=== PATIENT | male | born 1965 | race Caucasian/White ===

== ENCOUNTER 2016-09-14 21:53 | Emergency (ER) | payer OTHER ==
--- NOTE | 2016-09-14 22:14 | Emergency Department Record ---
History of Present Illness - General Chief Complaint: Laceration(s) Stated Complaint: LAC ON L THUMB Time Seen by Provider: 09/14/16 22:04 Source: Patient Mode of Arrival: Ambulatory Limitations: No limitations - History of Present Illness Initial Commments: The patient cut his L thumb with a knife a half hour ago. He denies any numbness or weakness. His Td is UTD. Onset/Timin -: Minutes(s) Treatments Prior to Arrival: Bandage - [place] Coma Scale Eye Response: (4) Open spontaneously Motor Response: (6) Obeys commands Verbal Response: (5) Oriented [place] Total: 15 - Related Data Hx Tetanus Toxoid Vaccination: Yes Year of Tetanus Vaccination: 2010 Patient Tetanus UTD (within 5 yrs): No (pt says at least 5) Home Medications Medication Instructions Recorded Confirmed Last Taken Lisinopril 40 mg PO DAILY 03/22/14 09/14/16 09/14/16 Allopurinol [Zyloprim] 300 mg PO DAILY 01/01/15 09/14/16 09/14/16 Diclofenac Sodium [Voltaren-Xr] 100 mg PO DAILY 01/01/15 09/14/16 09/14/16 Previous Rx's Medication Instructions Recorded Cephalexin [Keflex] 500 mg PO QID #20 cap 09/14/16 Allergies Allergy/AdvReac Type Severity Reaction Status Date / Time No Known Drug Allergies Allergy Verified 01/01/15 18:33 Travel Screening - Travel/Exposure Within Last 30 Days Have you traveled within the last 30 days?: No - Travel/Exposure Within Last Year Have you traveled outside the [place] in the last year?: No - Additonal Travel Details Have you been exposed to anyone with a communicable illness?: No Past Medical History - SOCIAL HISTORY Smoking Status: Never smoker Alcohol Use: Occassional Drug Use: None - RESPIRATORY Hx Respiratory Disorders: Yes Hx Sleep Apnea: Yes - CARDIOVASCULAR Hx Cardiac Cath: Yes (unkown details) Hx Heart Attack: Yes Hx Hypertension: Yes - NEURO Hx Neuro Disorders: No - GI Hx GI Disorders: No - Hx Genitourinary Disorders: No - ENDOCRINE Hx Endocrine Disorders: No Hx Diabetes: No Hx Thyroid Disease: No - MUSCULOSKELETAL Hx Musculoskeletal Disorders: Yes Hx Arthritis: Yes - PSYCH Hx Psych Problems: No - HEMATOLOGY/ONCOLOGY Hx Hematology/Oncology Disorders: No Family Medical History Any Significant Family History?: No Hx Heart Disease: Father, Mother *Heart Comment: father with [place] at 50 Hx HTN: Father, Mother *Stroke Comment: father -testicular CA Physical Exam - General General Appearance: Alert, Oriented x3, Cooperative, No acute distress - Extremities Extremities exam: negative: Normal inspection (There is a 1.2 cm lac to the distal L thumb over the anterior surface radial side. The thumb is NVI distally. ) Image of Finger Tip: 1 - 1.2 cm lac. Course Vital Signs 09/14/16 09/14/16 21:54 21:58 Temperature 98.3 F 98.5 F Pulse Rate 85 Pulse Rate [ 92 H Pulse Ox Probe] Respiratory 16 18 Rate Blood Pressure 139/85 Blood Pressure 139/85 [Left Arm] Pulse Ox 98 96 - Reevaluation(s) Reevaluation #1: Procedure note: The L thumb was anesth. with 1.5 CC lido %. The wound was prepped with betadine and cleansed with sterile saline. The wound was closed with 4 4.0 nylon sutures. There were no complications. 09/14/16 22:27 Disposition Disposition: Discharge Clinical Impression: Laceration of Thumb Qualifiers: Encounter type: initial encounter Laterality: left Qualified Code(s): S61.012A - Laceration without foreign body of left thumb without damage to nail, initial encounter Disposition: Home, Self-Care Condition: (1) Good Instructions: Laceration (ED) Additional Instructions: Keep dry for 2 days then wash daily but no soaking. Watch for signs of infection. Take the Keflex as directed. Have the suture removed in 10 days. Prescriptions: Cephalexin [Keflex] 500 mg PO QID #20 cap Forms: Patient Portal Access Time of Disposition: 22:30
== END 2016-09-14 22:39 | disposition home or self-care (01) ==
LOC: ER 21:53
DX: S61.012A Laceration without foreign body of left thumb without damage to nail, initial encounter (principal); W26.0XXA Contact with knife, initial encounter
CPT/HCPCS: 12001; 99283

== ENCOUNTER 2017-05-10 21:21 | Observation (INO) | payer BC, OTHER ==
[2017-05-10] MEDS ORDERED: METHYLPREDNISOLONE PF 125MG/VIAL IVP ONE (21:32)
[2017-05-10] MEDS ORDERED: IPRATROPIUM/ALBUTEROL (0.5MG/3MG) NEB INH ONE (21:32)
--- NOTE | 2017-05-10 21:38 | Emergency Department Record ---
History of Present Illness - General Chief Complaint: Shortness of breath Stated Complaint: ROBERT Time Seen by Provider: 05/10/17 21:32 Source: Patient, EMS Mode of Arrival: EMS Limitations: No limitations - History of Present Illness Initial Comments: 52 yo male presents to ED for evaluation of progressively worsening ROBERT for 1 week, worse tonight. Patient denies previous history of lung problems., but does report fever, wheezing, and non-productive cough symptoms. Patient reports a history of HTN and previous SD. MD Complaint: Shortness of breath Onset/Timin -: Week(s) Severity: Moderate Consistency: Constant Improves With: Bronchodilators Worsens With: Coughing Context: Recent illness, Recent URI Associated Symptoms: Denies other symptoms Treatments Prior to Arrival: Bronchodilator - Related Data Home Oxygen Therapy: No Home Medications Medication Instructions Recorded Confirmed Last Taken Prednisone [Prednisone 10Mg] 10 mg PO ASDIR PRN 05/10/17 05/10/17 Unknown Allergies Allergy/AdvReac Type Severity Reaction Status Date / Time No Known Drug Allergies Allergy Verified 01/01/15 18:33 Review of Systems Constitutional: Reports: Chills, Fever. Denies: Malaise, Night sweats Eyes: Denies: Eye discharge, Eye pain ENT: Denies: Congestion, Ear pain, Epistaxis Respiratory: Reports: Cough, Dyspnea Cardiovascular: Reports: Dyspnea on exertion. Denies: Chest pain, Edema Endocrine: Denies: Fatigue, Heat or cold intolerance Gastrointestinal: Denies: Abdominal pain, Nausea, Vomiting Genitourinary: Denies: Incontinence, Retention Musculoskeletal: Denies: Arthralgia, Back pain, Gout, Joint swelling Skin: Denies: Bruising, Change in color Neurological: Denies: Abnormal gait, Confusion, Headache, Seizure Psychiatric: Denies: Anxiety Hematological/Lymphatic: Denies: Anemia, Blood Clots Past Medical History - SOCIAL HISTORY Smoking Status: Never smoker Drug Use: None - RESPIRATORY Hx Respiratory Disorders: Yes Hx Sleep Apnea: Yes - CARDIOVASCULAR Hx Cardiac Cath: Yes (unkown details) Hx Heart Attack: Yes Hx Hypertension: Yes - NEURO Hx Neuro Disorders: No - GI Hx GI Disorders: No - Hx Genitourinary Disorders: No - ENDOCRINE Hx Endocrine Disorders: No Hx Diabetes: No Hx Thyroid Disease: No - MUSCULOSKELETAL Hx Musculoskeletal Disorders: Yes Hx Arthritis: Yes - PSYCH Hx Psych Problems: No - HEMATOLOGY/ONCOLOGY Hx Hematology/Oncology Disorders: No Family Medical History Hx Heart Disease: Father, Mother *Heart Comment: father with [place] at 50 Hx HTN: Father, Mother *Stroke Comment: father -testicular CA Physical Exam - General General Appearance: Alert, Oriented x3, Cooperative, Moderate distress Limitations: No limitations - Head Head exam: Atraumatic, Normocephalic, Normal inspection Head exam detail: negative: Abrasion, Contusion, Solo's sign, General tenderness, Hematoma, Laceration - Eye Eye exam: Normal appearance. negative: Conjunctival injection, Periorbital swelling, Periorbital tenderness, Scleral icterus - ENT Ear exam: negative: Auricular hematoma, Auricular trauma Nasal Exam: negative: Active bleeding, Discharge, Dried blood, Foreign body Mouth exam: negative: Drooling, Laceration, Muffled voice, Tongue elevation - Neck Neck exam: Normal inspection. negative: Meningismus, Tenderness - Respiratory Respiratory exam: Decreased breath sounds, Respiratory distress. negative: Rales, Rhonchi, Stridor - Cardiovascular Cardiovascular Exam: Normal rhythm, Normal heart sounds, Tachycardia - GI/Abdominal GI/Abdominal exam: Soft. negative: Rebound, Rigid, Tenderness - Rectal Rectal exam: Deferred - exam: Deferred - Extremities Extremities exam: Normal inspection. negative: Calf tenderness, Pedal edema, Tenderness - Back Back exam: Denies: CVA tenderness (R), CVA tenderness (L) - Neurological Neurological exam: Alert, Normal gait, Oriented X3 - Psychiatric Psychiatric exam: Normal affect, Normal mood - Skin Skin exam: Normal color. negative: Abrasion Type of lesion: negative: abrasion Course - Reevaluation(s) Reevaluation #1: 05/10/17 22:10 EKG: NSR 97 Normal axis, normal intervals T wave inversion III, AVF No significant change from 01/01/15 Reevaluation #2: 05/10/17 22:27 Labs reviewed, D-Dimer 0.35, WBC 4.6 with 57% lymphocytes. Labs are overall grossly unremarkable for an acute process. Reevaluation #3: 05/10/17 22:44 CXR: No acute process Paitent was updated on all results, reports that he is clinically feeling much better. Will trial the patient off oxygen and reassess. Reevaluation #4: 05/10/17 22:52 Patient was removed from 4L NC, de-saturated to 88% within 3-4 minutes at rest. Will admit for hypoxia and further evaluation. Medical Decision Making - Lab Data Result diagrams: 05/10/17 21:43 05/10/17 21:43 Disposition Disposition: Admit Clinical Impression: Bronchospasm, Hypoxia Disposition: Still a Patient at [facility] Decision to Admit: Admit from ER Decision to Admit Date: 05/10/17 Decision to Admit Time: 22:53 Condition: (2) Stable Forms: Patient Portal Access Time of Disposition: 22:53 Quality - Quality Measures Quality Measures: N/A - Blood Pressure Screening Does Patient Have Any of the Following: Active Dx of HTN Blood Pressure Classification: Pre-Hypertensive BP Reading Systolic Measurement: 121 Diastolic Measurement: 78 Screening for High Blood Pressure: Patient Exclusion, Hx of HTN [G9744]
[2017-05-10] MEDS ORDERED: 0.9 % SODIUM CHLORIDE 1000ML 1,000 ML IV SCH (21:45)
[2017-05-10 21:55] LABS: HEMATOCRIT 39.2 % (42.0-52.0); HEMOGLOBIN 13.9 gm/dl (14.0-18.0); MEAN CELL VOLUME 93.3 fl (81-97); MEAN CORPUSCULAR HGB CONC 35.5 g/dl (32-36); MEAN PLATELET VOLUME 8.8 fl (7.4-10.4); PLATELET COUNT 172 K/uL (130-400); RED CELL DISTRIBUTION WIDTH 12.6 % (11.5-14.5); WHITE BLOOD COUNT W/O DIFF 4.6 K/uL (4.2-12.2)
[2017-05-10 22:07] LABS: BLOOD UREA NITROGEN 9 mg/dL (6-20); CREATININE 0.8 mg/dL (0.7-1.2); EST GLOMERULAR FILTRATION RATE > 60 mL/min
[2017-05-10] MEDS ORDERED: LORAZEPAM 2 MG/ML VIAL IV ONE (22:07)
[2017-05-10 22:08] LABS: TOTAL PROTEIN 7.4 g/dL (6.6-8.7)
[2017-05-10 22:10] LABS: GLUCOSE,RANDOM 94 mg/dL (74-109)
[2017-05-10 22:13] LABS: ALBUMIN 4.1 g/dL (4.0-5.0); ALKALINE PHOSPHATASE 57 U/L (40-129); ALT/SGPT 64 U/L (<41); AST/SGOT 45 U/L (10.0-50.0)
[2017-05-10 22:14] LABS: ALB/GLOB RATIO 1.2 (1.1-1.8)
[2017-05-10] MEDS ORDERED: IBUPROFEN 400 MG TABLET PO ONE (22:44)
[2017-05-10] MEDS ORDERED: ALBUTEROL SULFATE (0.083%) 2.5 MG/3 ML NEB INH PRN (23:44)
[2017-05-10] MEDS ORDERED: 0.9 % SODIUM CHLORIDE 1000ML 1,000 ML IV PRN (23:44)
[2017-05-11] MEDS ORDERED: CEFTRIAXONE SODIUM 1 GM in 0.9 % SODIUM CHLORIDE 100ML 100 ML IVPB SCH (01:00)
[2017-05-11] MEDS ORDERED: AZITHROMYCIN 500 MG in 0.9 % SODIUM CHLORIDE 250ML 250 ML IVPB SCH (02:00)
[2017-05-11] MEDS: IPRATROPIUM/ALBUTEROL (0.5MG/3MG) NEB INH SCH ×2 (06:03→10:07)
[2017-05-11] MEDS ORDERED: METHYLPREDNISOLONE PF 125MG/VIAL IVP SCH (10:00)
[2017-05-11] MEDS ORDERED: LISINOPRIL 10 MG TABLET PO SCH (10:00)
[2017-05-11] MEDS ORDERED: ALLOPURINOL 100 MG TAB PO SCH (10:00)
--- NOTE | 2017-05-11 10:42 | History & Physical ---
History of Present Illness - Date of Service Date of Service for History & Physical: 05/11/17 - History of Present Illness Admitting Diagnosis: Hypoxia. Bronchospasm History of Present Illness: 52 y/o male with 1 week history of cough and URI symptoms brought to ER by EMS for shortness of breath, hypoxia. O2 at time of arrival on 4L and 1 DuoNeb treatment. No history of smoking. Has no known history of lung disease. Does have history of sleep apnea with last sleep study being about 18 years ago. Does not wear CPAP as prescribed as reports he just can't tolerate wearing the mask. Denies recent fevers but does report 1 week history flu-like symptoms with persistent cough. Has recently been exposed to a coworker who has an with RSV and whooping cough. 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 ED work up grossly negative for acute process with normal CXR, no elevation in WBC normal D-Dimer. Cardiac enzymes negative. EKG unchanged from prior. O2 improved with subsequent DuoNeb and initiation of IV antibiotics in the ED. Will admit overnight for observation with intent to wean him off oxygen, monitor cough and discharge if improved. Travel Screening - Travel/Exposure Within Last 30 Days Have you traveled within the last 30 days?: No - Travel/Exposure Within Last Year Have you traveled outside the [place] in the last year?: No - Additonal Travel Details Have you been exposed to anyone with a communicable illness?: No - Travel Symptoms Symptom Screening: Fever (Subjective) Review of Systems Constitutional: Reports: Chills, Fever. Denies: Malaise, Night sweats Eyes: Denies: Eye discharge, Eye pain ENT: Denies: Congestion, Ear pain, Epistaxis Respiratory: Reports: Cough, Dyspnea Cardiovascular: Reports: Dyspnea on exertion. Denies: Chest pain, Edema Endocrine: Denies: Fatigue, Heat or cold intolerance Gastrointestinal: Denies: Abdominal pain, Nausea, Vomiting Genitourinary: Denies: Incontinence, Retention Musculoskeletal: Denies: Arthralgia, Back pain, Gout, Joint swelling Skin: Denies: Bruising, Change in color Neurological: Denies: Abnormal gait, Confusion, Headache, Seizure Psychiatric: Denies: Anxiety Hematological/Lymphatic: Denies: Anemia, Blood Clots Past Medical History - SOCIAL HISTORY Smoking Status: Never smoker Alcohol Use Comment: 2-3 beers after work daily Drug Use: None - RESPIRATORY Hx Respiratory Disorders: Yes Hx Sleep Apnea: Yes Hx of CPAP: Yes (has but does not use) - CARDIOVASCULAR Hx Cardio Disorders: Yes Hx Cardiac Cath: Yes (unknown details) Hx Heart Attack: Yes Hx Hypertension: Yes - NEURO Hx Neuro Disorders: No - GI Hx GI Disorders: No - Hx Genitourinary Disorders: No - ENDOCRINE Hx Endocrine Disorders: No Hx Diabetes: No Hx Thyroid Disease: No - MUSCULOSKELETAL Hx Musculoskeletal Disorders: Yes Hx Arthritis: Yes - PSYCH Hx Psych Problems: No - HEMATOLOGY/ONCOLOGY Hx Hematology/Oncology Disorders: No Family Medical History Any Significant Family History?: Yes Hx Heart Disease: Father, Mother *Heart Comment: father with [place] at 50 Hx HTN: Father, Mother *Stroke Comment: father -testicular CA H&P Meds/Allergies - Allergies Allergies: Allergies Allergy/AdvReac Type Severity Reaction Status Date / Time No Known Drug Allergies Allergy Verified 01/01/15 18:33 - Home Medications Home Medications Medication Instructions Recorded Confirmed Last Taken Prednisone [Prednisone 10Mg] 10 mg PO ASDIR PRN 05/10/17 05/10/17 Unknown - Active Medications Active Medications: Current Medications Albuterol Sulfate () 2.5 mg INH RESP.Q4H PRN PRN Reason: DIFFICULTY IN BREATHING Albuterol/Ipratropium (Duoneb) 3 ml INH RESP.Q4H.[facility] Last Admin: 05/11/17 10:07 Dose: Not Given Allopurinol (Zyloprim) 300 mg PO DAILY [facility] Sodium Chloride () 1,000 mls @ 100 mls/hr IV .Q10H PRN PRN Reason: LARGE VOLUME IV Last Admin: 05/11/17 00:00 Dose: 100 mls/hr Azithromycin 500 mg/ Sodium (Chloride) 250 mls @ 250 mls/hr IVPB 0200 [facility] Stop: 05/16/17 02:01 Last Infusion: 05/11/17 02:50 Dose: Infused Ceftriaxone Sodium 1 gm/ (Sodium Chloride) 100 mls @ 100 mls/hr IVPB 0100 [facility] Stop: 05/16/17 01:01 Last Infusion: 05/11/17 01:20 Dose: Infused Lisinopril (Zestril) 40 mg PO DAILY [facility] Methylprednisolone Sodium Succinate (Solu-Medrol) 125 mg IVP DAILY [facility] Physical Exam - Vital Signs Vital Signs: Vital Signs - Last 24 Hrs Temp Pulse Pulse Pulse Pulse Resp BP 05/11/17 10:09 91 H 17 05/11/17 10:07 91 H 17 05/11/17 08:00 96.9 F L 88 20 05/11/17 06:03 99 H 16 05/11/17 04:00 98.6 F 92 H 18 05/11/17 00:00 98.0 F 89 18 05/10/17 23:25 95 H 14 99/66 BP Pulse Ox 05/11/17 10:09 95 05/11/17 10:07 95 05/11/17 08:00 135/76 95 05/11/17 06:03 93 L 05/11/17 04:00 147/74 99 05/11/17 00:00 115/67 97 05/10/17 23:25 96 - General General Appearance: Alert, Oriented x3, Cooperative, Moderate distress Limitations: No limitations - Head Head exam: Atraumatic, Normocephalic, Normal inspection Head exam detail: negative: Abrasion, Contusion, Solo's sign, General tenderness, Hematoma, Laceration - Eye Eye exam: Normal appearance. negative: Conjunctival injection, Periorbital swelling, Periorbital tenderness, Scleral icterus - ENT ENT exam: Normal exam Ear exam: negative: Auricular hematoma, Auricular trauma Nasal Exam: negative: Active bleeding, Discharge, Dried blood, Foreign body Mouth exam: negative: Drooling, Laceration, Muffled voice, Tongue elevation - Neck Neck exam: Normal inspection. negative: Meningismus, Tenderness - Respiratory Respiratory exam: Normal lung sounds bilaterally. negative: Decreased breath sounds, Rales, Respiratory distress, Rhonchi, Stridor - Cardiovascular Cardiovascular Exam: Regular rate, Normal rhythm, Normal heart sounds Peripheral Pulses: 2+: Radial (R), Radial (L), Dorsalis Pedis (R), Dorsalis Pedis (L) - GI/Abdominal GI/Abdominal exam: Soft. negative: Rebound, Rigid, Tenderness - Rectal Rectal exam: Deferred - exam: Deferred - Extremities Extremities exam: Normal inspection. negative: Calf tenderness, Pedal edema, Tenderness - Back Back exam: Denies: CVA tenderness (R), CVA tenderness (L) - Neurological Neurological exam: Alert, Normal gait, Oriented X3 - Psychiatric Psychiatric exam: Normal affect, Normal mood - Skin Skin exam: Normal color. negative: Abrasion Type of lesion: negative: abrasion Results - Labs Result Diagrams: 05/10/17 21:43 05/10/17 21:43 VTE H&P Assessment - Risk for VTE Risk for VTE: Yes Risk Level: Low Risk Assessment Date: 05/11/17 Risk Assessment Time: 10:50 VTE Orders Placed or Will Be Placed: Yes Plan - Detailed Diagnosis and Plan (1) Bronchospasm Current Visit: Yes Status: Acute Base Code: J98.01 - ACUTE BRONCHOSPASM Comment: - unclear etiology, has had protracted URI - responding well clinically to IV antibiotics and respiratory treatments - will plan for continuation of PO antibiotics with pertussis coverage, may return to work in 5 days - O2 RA with ambulation this morning 95% - pertussis PCR due to exposure - likely discharge home today with close outpatient follow up with PCP - recommend repeat sleep study (2) Hypoxia Current Visit: Yes Status: Acute Base Code: R09.02 - HYPOXEMIA Comment: - significantly improved overnight. O2 95% RA with ambulation (3) Full code status Current Visit: Yes Status: Acute Base Code: Z78.9 - OTHER SPECIFIED HEALTH STATUS (4) DVT prophylaxis Current Visit: Yes Status: Acute Base Code: [id number] - Comment: - nursing to encourage frequent ambulation
--- NOTE | 2017-05-11 11:08 | Discharge Summary ---
Providers Discharge Summary Date: 05/11/17 Date of admission: 05/10/17 23:20 Expected Date of Discharge: 05/11/17 Attending physician: Ian Acosta Primary care physician: MAR GABRIEL D.O. Physical Exam - Vital Signs Vital Signs: Vital Signs - Last 24 Hrs Temp Pulse Pulse Pulse Pulse Resp BP 05/11/17 10:09 91 H 17 05/11/17 10:07 91 H 17 05/11/17 08:00 96.9 F L 88 20 05/11/17 06:03 99 H 16 05/11/17 04:00 98.6 F 92 H 18 05/11/17 00:00 98.0 F 89 18 05/10/17 23:25 95 H 14 99/66 BP Pulse Ox 05/11/17 10:09 95 05/11/17 10:07 95 05/11/17 08:00 135/76 95 05/11/17 06:03 93 L 05/11/17 04:00 147/74 99 05/11/17 00:00 115/67 97 05/10/17 23:25 96 - General General Appearance: Alert, Oriented x3, Cooperative, Moderate distress Limitations: No limitations - Head Head exam: Atraumatic, Normocephalic, Normal inspection Head exam detail: negative: Abrasion, Contusion, Solo's sign, General tenderness, Hematoma, Laceration - Eye Eye exam: Normal appearance. negative: Conjunctival injection, Periorbital swelling, Periorbital tenderness, Scleral icterus - ENT ENT exam: Normal exam Ear exam: negative: Auricular hematoma, Auricular trauma Nasal Exam: negative: Active bleeding, Discharge, Dried blood, Foreign body Mouth exam: negative: Drooling, Laceration, Muffled voice, Tongue elevation - Neck Neck exam: Normal inspection. negative: Meningismus, Tenderness - Respiratory Respiratory exam: Normal lung sounds bilaterally. negative: Decreased breath sounds, Rales, Respiratory distress, Rhonchi, Stridor - Cardiovascular Cardiovascular Exam: Regular rate, Normal rhythm, Normal heart sounds Peripheral Pulses: 2+: Radial (R), Radial (L), Dorsalis Pedis (R), Dorsalis Pedis (L) - GI/Abdominal GI/Abdominal exam: Soft. negative: Rebound, Rigid, Tenderness - Rectal Rectal exam: Deferred - exam: Deferred - Extremities Extremities exam: Normal inspection. negative: Calf tenderness, Pedal edema, Tenderness - Back Back exam: Denies: CVA tenderness (R), CVA tenderness (L) - Neurological Neurological exam: Alert, Normal gait, Oriented X3 - Psychiatric Psychiatric exam: Normal affect, Normal mood - Skin Skin exam: Normal color. negative: Abrasion Type of lesion: negative: abrasion Hospitalization - Hospitalization Admission Diagnosis: Hypoxia. Bronchospasm - Problem List/Discharge Diagnosis (1) Bronchospasm Current Visit: Yes Status: Acute Base Code: J98.01 - ACUTE BRONCHOSPASM Comment: - unclear etiology, has had protracted URI - responding well clinically to IV antibiotics and respiratory treatments - will plan for continuation of PO antibiotics with pertussis coverage, may return to work in 5 days - O2 RA with ambulation this morning 95% - pertussis PCR due to exposure - likely discharge home today with close outpatient follow up with PCP - recommend repeat sleep study (2) Hypoxia Current Visit: Yes Status: Acute Base Code: R09.02 - HYPOXEMIA Comment: - significantly improved overnight. O2 95% RA with ambulation (3) Full code status Current Visit: Yes Status: Acute Base Code: Z78.9 - OTHER SPECIFIED HEALTH STATUS (4) DVT prophylaxis Current Visit: Yes Status: Acute Base Code: [id number] - Comment: - nursing to encourage frequent ambulation - Hospitalization Course Disposition: Home, Self-Care Hospital Course: 52 y/o male with 1 week history of cough and URI symptoms brought to ER by EMS for shortness of breath, hypoxia. O2 at time of arrival on 4L and 1 DuoNeb treatment. No history of smoking. Has no known history of lung disease. Does have history of sleep apnea with last sleep study being about 18 years ago. Does not wear CPAP as prescribed as reports he just can't tolerate wearing the mask. Denies recent fevers but does report 1 week history flu-like symptoms with persistent cough. Has recently been exposed to a coworker who has an infant with RSV and whooping cough. 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 ED work up grossly negative for acute process with normal CXR, no elevation in WBC normal D-Dimer. Cardiac enzymes negative. EKG unchanged from prior. O2 improved with subsequent DuoNeb and initiation of IV antibiotics in the ED. Will admit overnight for observation with intent to wean him off oxygen, monitor cough and discharge if improved. Condition at Discharge: (2) Stable Discharge Diagnosis: Hypoxia, bronchospasm Discharge Medications - Discharge Medications Prescriptions: Albuterol Sulfate [Proair Hfa] 1 - 2 puff IH .EVERY 4-6 HOURS PRN #1 inhaler PRN Reason: Difficulty In Breathing Azithromycin 250 mg PO DAILY 4 Days #4 tablet Prednisone [Prednisone 20Mg] 40 mg PO DAILY 5 Days #10 tab Home Medications: Ambulatory Orders Lisinopril 40 mg PO DAILY 03/22/14 [Last Taken 09/14/16] Allopurinol [Zyloprim] 300 mg PO DAILY 01/01/15 [Last Taken 09/14/16] Albuterol Sulfate [Proair Hfa] 1 - 2 puff IH .EVERY 4-6 HOURS PRN #1 inhaler 03/18 [Last Taken Unknown] Azithromycin 250 mg PO DAILY 4 Days #4 tablet 05/11/17 [Last Taken Unknown] Prednisone [Prednisone 20Mg] 40 mg PO DAILY 5 Days #10 tab 05/11/17 [Last Taken Unknown] Discharge Plan - Discharge Instructions Activity at Discharge: Increase Activity as Tolerated Diet at Discharge: Low Fat, Low Cholesterol Additional Instructions: May return to work after antibiotics are complete Pertussis culture pending, cover mouth when coughing, avoid the very old and very young Use albuterol inhaler for any difficulty breathing or cough Quality Measures - Quality Measures Quality Measures: Documentation of Current Medications in Medical Record, Screening for High Blood Pressure and F/U Documented - Current Medications Quality Measure: Measure #130: Documentation of Current Medications Documentation of Current Medications: <Current Medications Documented/Reviewed> [G8427] - Blood Pressure Screening Quality Measure: Screening for High Blood Pressure and Follow-Up Documented Does Patient Have Any of the Following: Active Dx of HTN Blood Pressure Classification: Normal BP Reading Systolic Measurement: 99 Diastolic Measurement: 66 Screening for High Blood Pressure: Patient Exclusion, Hx of HTN [G9744] - Elder Abuse Suspicion Index EASI Reference Information: Giovani GAMEZ, David Bond, Lizy D, Ghazala Tucker.Development and validation of a tool to assist physicians identification of elder abuse: The Elder Abuse Suspicion Index (EASI ). Journal of Elder Abuse and Neglect, 2008; 20 (3): 276-300.
--- NOTE | 2017-05-11 20:20 | RADIOLOGY REPORT ---
EXAM: CHEST 2 VIEWS HISTORY: COUGH AND DIFFICULTY BREATHING. TECHNIQUE: PA and lateral upright views of the chest were obtained. COMPARISON: 01/01/15. FINDINGS: There are low lung volumes. The heart, mediastinum, and pulmonary vasculature are normal. There are no visible acute infiltrates or effusions. There is no pneumothorax. The bones appear intact. IMPRESSION: 1. LOW LUNG VOLUMES. 2. NO ACUTE CHEST PATHOLOGY. JOB NUMBER: [id number] [facility]
== END 2017-05-11 12:46 | disposition home or self-care (01) ==
LOC: ER 21:21 → MEDSURG 23:20
PROVIDERS: ADMIT Internal Medicine; ATTEND Internal Medicine
DX: J98.01 Acute bronchospasm (principal); R09.02 Hypoxemia; Z78.9 Other specified health status
CPT/HCPCS: 99285 ×2; 96374; 96375; 80053; 84484; 85379; 85027; 71020; 94640 ×2; 94761; 93005; 93010; G0378 ×2; J2060; 99220; J0456; J2930; J7030; J7050

== ENCOUNTER 2019-01-16 20:43 | Emergency (ER) | payer BC, OTHER ==
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
[2019-01-16 21:24] LABS: ABSOLUTE NEUTROPHIL COUNT 2.02; HEMATOCRIT 42.2 % (42.0-52.0); HEMOGLOBIN 14.8 gm/dl (14.0-18.0); MEAN CELL VOLUME 94.6 fl (81-97); MEAN CORPUSCULAR HEMOGLOBIN 33.2 pg (27-33); MEAN CORPUSCULAR HGB CONC 35.1 g/dl (32-36); MEAN PLATELET VOLUME 9.2 fl (7.4-10.4); PLATELET COUNT 139 K/uL (130-400); RED BLOOD COUNT 4.46 M/uL (4.40-5.70); RED CELL DISTRIBUTION WIDTH 13.2 % (11.5-14.5)
[2019-01-16 21:33] LABS: BLOOD UREA NITROGEN 10 mg/dL (6-20)
[2019-01-16 21:34] LABS: CREATININE 0.8 mg/dL (0.7-1.2); EST GLOMERULAR FILTRATION RATE > 60 mL/min; TOTAL PROTEIN 7.6 g/dL (6.6-8.7)
[2019-01-16 21:36] LABS: ALCOHOL 0.287 g/dL (0-0.010); GLUCOSE,RANDOM 100 mg/dL (74-109)
[2019-01-16 21:39] LABS: ALB/GLOB RATIO 1.7 (1.1-1.8); ALBUMIN 4.8 g/dL (4.0-5.0); ALKALINE PHOSPHATASE 48 U/L (40-129); ALT/SGPT 97 U/L (<41); AST/SGOT 78 U/L (10.0-50.0)
[2019-01-16 21:50] LABS: URINE APPEARANCE CLEAR; URINE BILIRUBIN NEGATIVE (NEGATIVE); URINE BLOOD NEGATIVE (NEGATIVE); URINE COLOR YELLOW; URINE GLUCOSE (UA) NEGATIVE (NEGATIVE); URINE KETONE NEGATIVE (NEGATIVE); URINE LEUKOCYTE ESTERASE NEGATIVE (NEGATIVE); URINE NITRITE NEGATIVE (NEGATIVE); URINE PROTEIN NEGATIVE (NEGATIVE); URINE UROBILINOGEN 0.2 E.U./dL (0.20 - 1.00)
[2019-01-16 21:51] LABS: AMPHETAMINE SCREEN URINE NOT DETECTED; BARBITURATE SCREEN URINE NOT DETECTED; BENZODIAZEPINE SCREEN URINE NOT DETECTED; COCAINE SCREEN URINE NOT DETECTED; METHADONE SCREEN URINE NOT DETECTED; METHAMPHETAMINE SCREEN NOT DETECTED; OPIATE SCREEN URINE NOT DETECTED; OXYCODONE SCREEN URINE NOT DETECTED; PHENCYCLIDINE SCREEN URINE NOT DETECTED; PROPOXYPHENE SCREEN URINE NOT DETECTED; THC SCREEN URINE NOT DETECTED; TRICYCLIC ANTIDEPRESSANT SCRN NOT DETECTED
[2019-01-16] MEDS ORDERED: 0.9 % SODIUM CHLORIDE 1,000 ML BAG IV ONE (21:52)
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
== END 2019-01-17 01:42 | disposition home or self-care (01) ==
LOC: ER 20:43
DX: S06.0X0A Concussion without loss of consciousness, initial encounter (principal); F10.920 Alcohol use, unspecified with intoxication, uncomplicated; Y90.8 Blood alcohol level of 240 mg/100 ml or more; R11.0 Nausea; R51 Headache; I10 Essential (primary) hypertension; I25.2 Old myocardial infarction; W20.8XXA Other cause of strike by thrown, projected or falling object, initial encounter; Y92.009 Unspecified place in unspecified non-institutional (private) residence as the place of occurrence of the external cause
CPT/HCPCS: 99284 ×2; 80053; 81003; 80305; 85027; 70450; G0480; 80320; J7030